=== PATIENT | female | born 1990 | race Caucasian/White ===

== ENCOUNTER 2016-08-05 19:34 | Inpatient (IN) ==
[2016-08-05] MEDS: *HR* HYDROmorphone (PF) 1 MG/ML SYRINGE IVP PRN ×2 (21:39→23:46)
[2016-08-05] MEDS: 0.9 % Sodium Chloride 1,000 ML IVC SCH (21:53)
[2016-08-06] MEDS ORDERED: Ondansetron 4 MG/2 ML VIAL IVP SCH
[2016-08-06] MEDS: *HR* HYDROmorphone (PF) 1 MG/ML SYRINGE IVP PRN ×6 (03:06→23:35)
[2016-08-06] MEDS: Ondansetron 4 MG/2 ML VIAL IVP PRN ×2 (03:08→15:40)
[2016-08-06] MEDS: cefOXitin 2,000 MG in D5% in Water (Mini-Bag+) 100 ML IVPB SCH ×4 (04:49→23:35)
[2016-08-06 05:42] LABS: Basophils % 0.4 %; Eosinophils # 0.1 K/mcL (0.0-0.6); Eosinophils % 0.5 %; Hematocrit 43.5 % (35.3-44.9); Hemoglobin 13.4 g/dL (11.5-15.4); Immature Granulocytes % 0.4 % (0-4); Lymphocytes % 8.7 %; Mean Corpuscular HGB Conc 30.8 g/dL (31.6-35.5); Mean Corpuscular Hemoglobin 23.8 pg (28.0-33.3); Mean Corpuscular Volume 77.4 fL (83.0-100.0); Mean Platelet Volume 10.9 fL (9.4-12.4); Monocytes # 1.1 K/mcL (0.0-1.3); Neutrophils # 9.1 K/mcL (1.6-8.9); Platelet Count 247 K/mcL (140-400); Red Blood Count 5.62 M/mcL (3.82-4.97); Red Cell Distribution Width 14.8 % (11.5-14.5)
[2016-08-06 05:57] LABS: Alanine Aminotransferase 537 Units/L (0-55); Albumin 3.6 g/dL (3.5-5.0); Albumin/Globulin Ratio 0.9 (1.1-2.2); Alkaline Phosphatase 167 Units/L (38-126); Aspartate Amino Transferase 556 Units/L (5-34); BUN/Creatinine Ratio 9 (6-26); Bilirubin,Indirect 1.4 mg/dL (0.0-1.2); Bilirubin,Total 3.4 mg/dL (0.2-1.2); Blood Urea Nitrogen 7 mg/dL (7-20); Calcium 8.8 mg/dL (8.6-10.8); Carbon Dioxide 26 mEq/L (19-29); Chloride 103 mEq/L (98-109); Globulin 3.9 g/dL (2.4-3.5); Glucose 152 mg/dL (70-99); Osmolality,Calculated 289 (280-300); Sodium 139 mEq/L (136-145); Total Protein 7.5 g/dL (6.0-8.3); eGFR For African Americans > 60 (> 60); eGFR For Non-African Americans > 60 (> 60)
--- NOTE | 2016-08-06 08:38 | General Surg History&Physical ---
Date of Encounter: 08/06/16 Time of Encounter: 08:30 Assessment and Plan (1) Acute cholecystitis due to biliary calculus Current Visit: Yes Status: Acute The assessment and plan as outlined above was discussed with the patient and/or family members who expressed understanding and agreement. All questions were answered. The patient has acute cholecystitis with dilated common bile duct raising the possibility of choledocholithiasis. She has received 2 doses of intravenous antibiotics and now presents for urgent laparoscopic cholecystectomy. Cholangiogram will be performed rule out choledocholithiasis. I discussed the risks and benefits of surgery with her including the risk of open conversion and postoperative bile leak. She understands this and wished to proceed. She understands the postoperative ERCP a be recommended if choledocholithiasis is identified. History of Present Illness Chief complaint: Abdominal pain HPI: Ms. Cruz is a 26 year old female Who is been having right upper quadrant abdominal pain for 5 years. She was told that she had cholelithiasis 5 years ago and gallbladder removal was recommended. She has been having intermittent right upper quadrant pain radiating through to the back. She denies shakes chills or fever. She denies episodes of jaundice. She had a particularly severe episode of right upper quadrant pain rated at 8 out of 10 yesterday. She sought evaluation in the emergency room. CAT scan demonstrated a dilated common bile duct and dilated gallbladder. White blood cell count was elevated at 18,000. She was transferred for treatment of acute cholecystitis. Follow-up ultrasound of the right upper quadrant is morning demonstrated cholelithiasis, gallbladder sludge , thickened gallbladder wall, pericholecystic fluid, and dilated common bile duct. She has received 2 doses of intravenous IV antibiotics and now presents for urgent laparoscopic cholecystectomy, cholangiogram. Cholangiogram will be necessary to evaluate for choledocholithiasis secondary to dilated common bile duct Past Med Surg Social Fam HX - Past Medical History Medical history: asthma, other Psychiatric history: anxiety - Social History Smoking Status: Former smoker Smokeless Tobacco Status: No Alcohol use: none Drug use: none Medications and Allergies FLUoxetine HCl [PROzac] 20 mg PO DAILY 08/05/16 [History] Famotidine [Pepcid] 20 mg PO BID 08/05/16 [History] Allergies No Known Allergies Allergy (Verified 01/02/16 21:13) Review of Systems All systems PM: A 10-system review of systems was performed and is negative for pertinent findings except as documented above in the HPI. General Surgery Exam Initial Vital Signs Temp Pulse Resp BP Pulse Ox 97.9 F 85 17 149/85 97 08/05/16 20:30 08/05/16 20:30 08/05/16 20:30 08/05/16 20:30 08/05/16 20:30 - General physical appearance well developed, well nourished, no distress - Respiratory normal expansion, normal respiratory effort, clear to percussion, clear to auscultation - Cardiovascular Cardiovascular exam: Present: RRR, 15, 16 - Abdomen Abdomen general surgery: Present: bowel sounds present, tender Abdominal Tenderness: Present: RUQ - Integumentary Integumentary general surgery: Present: warm and dry, no abnormal pigmentation, other (No evidence of jaundice) - Neurologic Present: CN 2-12 grossly intact, normal coordination, normal sensation - Psychiatric Psychiatric general surgery: Present: appropriate, oriented to person, oriented to place, oriented to time, speech is normal, memory intact Results - Labs 08/06/16 04:53 08/06/16 04:53 Abnormal lab results WBC 11.4 K/mcL (4.3-11.1) H 08/06/16 04:53 RBC 5.62 M/mcL (3.82-4.97) H 08/06/16 04:53 MCV 77.4 fL (83.0-100.0) L 08/06/16 04:53 MCH 23.8 pg (28.0-33.3) L 08/06/16 04:53 MCHC 30.8 g/dL (31.6-35.5) L 08/06/16 04:53 RDW 14.8 % (11.5-14.5) H 08/06/16 04:53 Neutrophils # 9.1 K/mcL (1.6-8.9) H 08/06/16 04:53 Glucose 152 mg/dL (70-99) H 08/06/16 04:53 Total Bilirubin 3.4 mg/dL (0.2-1.2) H D 08/06/16 04:53 Direct Bilirubin 2.0 mg/dL (0.0-0.5) H 08/06/16 04:53 Indirect Bilirubin 1.4 mg/dL (0.0-1.2) H 08/06/16 04:53 AST 556 Units/L (5-34) H 08/06/16 04:53 ALT 537 Units/L (0-55) H 08/06/16 04:53 Alkaline Phosphatase 167 Units/L (38-126) H 08/06/16 04:53 Globulin 3.9 g/dL (2.4-3.5) H 08/06/16 04:53 Albumin/Globulin Ratio 0.9 (1.1-2.2) L 08/06/16 04:53 Diabetes panel 08/06/16 Range/Units 04:53 Sodium 139 (136-145) mEq/L Potassium 4.0 (3.5-4.5) mEq/L Chloride 103 (98-109) mEq/L Carbon Dioxide 26 (19-29) mEq/L BUN 7 (7-20) mg/dL Creatinine 0.81 (0.57-1.11) mg/dL Glucose 152 H (70-99) mg/dL Calcium 8.8 (8.6-10.8) mg/dL AST 556 H (5-34) Units/L ALT 537 H (0-55) Units/L Alkaline Phosphatase 167 H (38-126) Units/L Albumin 3.6 (3.5-5.0) g/dL Calcium panel 08/06/16 Range/Units 04:53 Calcium 8.8 (8.6-10.8) mg/dL Albumin 3.6 (3.5-5.0) g/dL Pituitary panel 08/06/16 Range/Units 04:53 Sodium 139 (136-145) mEq/L Potassium 4.0 (3.5-4.5) mEq/L Chloride 103 (98-109) mEq/L Carbon Dioxide 26 (19-29) mEq/L BUN 7 (7-20) mg/dL Creatinine 0.81 (0.57-1.11) mg/dL Glucose 152 H (70-99) mg/dL Calcium 8.8 (8.6-10.8) mg/dL Adrenal panel 08/06/16 Range/Units 04:53 Sodium 139 (136-145) mEq/L Potassium 4.0 (3.5-4.5) mEq/L Chloride 103 (98-109) mEq/L Carbon Dioxide 26 (19-29) mEq/L BUN 7 (7-20) mg/dL Creatinine 0.81 (0.57-1.11) mg/dL Glucose 152 H (70-99) mg/dL Calcium 8.8 (8.6-10.8) mg/dL Total Bilirubin 3.4 H D (0.2-1.2) mg/dL AST 556 H (5-34) Units/L ALT 537 H (0-55) Units/L Alkaline Phosphatase 167 H (38-126) Units/L Albumin 3.6 (3.5-5.0) g/dL All other labs normal. - Imaging CT scan - abdomen: image reviewed (I personally reviewed the CAT scan of the abdomen and agree with findings of dilated gallbladder and common bile duct) US - abdomen: image reviewed (I personally reviewed the ultrasound of the right upper quadrant. Findings are consistent with cholelithiasis and acute cholecystitis with possible choledocholithiasis)
[2016-08-06] MEDS: 0.9 % Sodium Chloride 1,000 ML IVC SCH ×2 (13:36→23:33)
[2016-08-06] MEDS ORDERED: Ondansetron 4 MG/2 ML VIAL ONE (17:31)
[2016-08-06] MEDS ORDERED: *HR* FentaNYL (PF) 100 MCG/2 ML VIAL ONE (17:31)
[2016-08-06] MEDS ORDERED: *HR* Propofol 200 MG/20 ML VIAL IVP ONE (17:31)
[2016-08-06] MEDS ORDERED: Lidocaine -MPF 2% 2 ML VIAL ONE (17:31)
[2016-08-06] MEDS ORDERED: Dexamethasone 4 MG/ML VIAL ONE (17:31)
[2016-08-06] MEDS ORDERED: *HR* Rocuronium Bromide 50 MG/5 ML VIAL ONE ×2 (17:31→21:07)
--- NOTE | 2016-08-06 18:06 | Anesthesia Evaluation PreOp ---
Date of Encounter: 08/06/16 Time of Encounter: 18:10 - Past History Planned Operation: Lap Cholecystectomy Cardiac History: Denies any Significant Hx Pulmonary History: Former smoker, Asthma CONCERT MANAGER History: Denies Any Significant HX Other Medical History: Other (Morbid Obesity) Anesthesia History: No Prior Anesthetic Complications : No Test: Negative Alcohol Use: none Drug use: none Medications and Allergies FLUoxetine HCl [PROzac] 20 mg PO DAILY 08/05/16 [History] Famotidine [Pepcid] 20 mg PO BID 08/05/16 [History] Allergies No Known Allergies Allergy (Verified 01/02/16 21:13) - Meds/Allergy Pre-op Review Medications Reviewed: Yes Allergies Reviewed: Yes Beta Blockers on Current Med List: No Anesthesia Results - Labs 08/06/16 04:53 08/06/16 04:53 Laboratory Tests 08/05/16 08/06/16 08/06/16 17:47 04:53 04:53 Hgb 13.4 Hct 43.5 Plt Count 247 Sodium 139 Potassium 4.0 BUN 7 Creatinine 0.81 Urine Test Negative Anesthesia Exam O2 Sat Height 1.68 m Weight 118.7 kg Weight 117.934 kg O2 Sat by Pulse Oximetry 97 O2 Sat by Pulse Oximetry 95 O2 Sat by Pulse Oximetry 97 O2 Sat by Pulse Oximetry 95 O2 Sat by Pulse Oximetry 97 O2 Sat by Pulse Oximetry 97 Vital Signs Temp Pulse Resp BP Pulse Ox 97.9 F 85 17 149/85 97 08/05/16 20:30 08/05/16 20:30 08/05/16 20:30 08/05/16 20:30 08/05/16 20:30 Height: 5'6 Weight: 261 lbs NPO (# of Hours): MN Pain Scale: 0 - HEENT Pupil (Motor): Pupils equal, EOMI Mallampati: II Teeth: Normal Oral Opening: Greater than 3 - CONCERT MANAGER LOC: Oriented CONCERT MANAGER Motor: Normal RUE, Normal LUE, Normal RLE, Normal LLE, Normal Face CONCERT MANAGER Sensory: Normal: RUE, LUE, RLE, LLE, Face - Cardiac Rhythm: Regular Murmur: None JVD: No Carotid Bruit: No - Pulmonary Breath Sounds: bilateral Clear Respiratory Effort: Symmetrical Anesthesia Assess/Plan ASA Score: 3 (MO) Modified James Scale for Level of Consciousness: Cooperative, oriented, and tranquil Anesthetic Plan: General Monitoring Plan: Standard Monitors Recovery Plan: PACU (Discussed GA, agrees to proceed)
[2016-08-06] MEDS ORDERED: Acetaminophen IV 1,000 MG/100 ML INFUS..BTL ONE (18:08)
[2016-08-06] MEDS ORDERED: Famotidine 20 MG/2 ML VIAL ONE (18:08)
[2016-08-06] MEDS ORDERED: *HR* Midazolam HCl 2 MG/2 ML VIAL ONE (18:09)
[2016-08-06] MEDS ORDERED: *HR* Succinylcholine 200 MG/10 ML VIAL IVP ONE (18:17)
[2016-08-06] MEDS ORDERED: Lidocaine -MPF 4% 5 ML AMPUL ONE (18:18)
[2016-08-06] MEDS ORDERED: *HR* HYDROmorphone 2 MG/ML SYRINGE ONE (18:33)
[2016-08-06] MEDS ORDERED: *HR* HYDROmorphone (PF) 1 MG/ML SYRINGE IVP PRN (19:05)
[2016-08-06] MEDS ORDERED: *HR* Promethazine 25 MG/ML VIAL IVP PRN (19:05)
[2016-08-06] MEDS ORDERED: Neostigmine Methylsulfate 3 MG/3 ML SYRINGE ONE (21:27)
--- NOTE | 2016-08-06 21:48 | Operative Note ---
Date of procedure: 08/06/16 Pre-op diagnosis: Acute cholecystitis and cholelithiasis Post-op diagnosis: other (#1 acute cholecystitis and cholelithiasis #2 impacted 1.8 cm common bile duct stone) Procedure: #1 attempted laparoscopic cholecystectomy and cholangiogram aborted after 45 minutes. #2, conversion to open cholecystectomy. #3 common bile duct exploration with removal of impacted common bile duct stone Anesthesia: ISAI Surgeon: Steve Jones Estimated blood loss (cc): 75 Specimen: #1 gallbladder and contents #2 1.8 cm common bile duct stone Condition: stable Disposition: PACU Procedure in Detail: After informed consent the patient is taken to the major operative suite placed in supine position given adequate general anesthetic. The abdomen was prepped and draped in sterile fashion utilizing ChloraPrep standard draping techniques. Timeout was taken patient was identified. Made a vertical midline incision below the umbilicus dissected down to level of fascia and placed 2 traction stitches. A Mazariegos trocar was placed into the abdomen and the abdomen was insufflated to 15 mmHg pressure of CO2. I placed an 11 trocar in the subxiphoid area and 25 mm trochars in subcostal area. The gallbladder was photographed. The gallbladder was completely obstructed. The gallbladder was decompressed with a decompression needle. There was white bile consistent with complete obstruction. The gallbladder was grasped and elevated a variety of blunt and sharp dissection techniques were used to isolate the cystic duct. The cystic duct was very large. I obtained a cholangiogram. The cholangiogram demonstrated flow into the proximal common bile ducts and into the liver but absolutely no flow distal to the cystic duct. I attempted a second cholangiogram and had the same findings. The differential diagnosis included obstruction of the distal common bile duct versus misidentification of the common bile duct for cholangiogram and possible common bile duct injury. Decision was made to convert to open. Open conversion was delayed with 2 Bookwalter retractor sets demonstrating inadequate sterilization. We are finally able to start the open conversion. I made a subcostal incision after removing all trochars. I entered the abdominal cavity and placed a Bookwalter retractor. I dissected the neck of the gallbladder. There was no common bile duct injury. The cystic duct was quite large. I divided the cystic artery and the cystic duct and performed cholecystectomy. Once this was done I palpated the common bile duct and the common bile duct had a stone impacted in the common bile duct just distal to the cystic duct junction. I used Hancock scissors to open the cystic duct on the common bile duct proximally and distally with some difficulty I was able to finally remove the 1.8 cm stone which was completely impacted. After removing the stone I had a negative stone forcep passed proximally and distally and I was able to pass the dilator through the common bile duct sphincter at the duodenum. I then placed a 16-Hebrew T-tube and close the common bile duct opening around the T tube with 4 stitches of 4-0 Prolene. I obtained a completion cholangiogram demonstrating no evidence of filling defects, chronically dilated common bile duct, and flow into the duodenum. I irrigated with copious amounts of antibiotic containing solution. I placed a # 10 Froy-Garcia drain beside the T tube. Both of these were secured with silk. Posterior fascia was closed with looped 0 PDS and the anterior fascia was closed with looped 0 PDS the skin was closed with Vicryl and skin bere. The patient tolerated the procedure very well and is transferred to recovery in stable condition
--- NOTE | 2016-08-06 22:29 | Anesthesia Evaluation Post Op ---
Date of Encounter: 08/06/16 Time of Encounter: 22:27 - Vital Signs Vital Signs: Vital Signs/O2 Sat, Most Current Temp Pulse Resp BP Pulse Ox 98.3 F 95 20 129/71 99 08/06/16 22:16 08/06/16 22:16 08/06/16 22:16 08/06/16 22:16 08/06/16 22:16 - Lungs Lungs: Clear Ascult./Percussion - Airway Airway: Non-obstructed - Cardiovascular Regular Rate - Mental Status Mental Status: Alert & Oriented, Answers Appropriately - Pain Pain Scale: 4 Pain Scale used: Numeric (1 - 10) - Nausea Vomiting Nausea Vomiting: Not Present - Hydration Hydration: NPO, Has not voided - Discharge PostOp Status: Transfer Patient to floor
[2016-08-07] MEDS: *HR* HYDROmorphone (PF) 1 MG/ML SYRINGE IVP PRN ×4 (03:59→13:22)
[2016-08-07 06:08] LABS: Basophils % 0.2 %; Hematocrit 40.7 % (35.3-44.9); Hemoglobin 12.8 g/dL (11.5-15.4); Immature Granulocytes % 0.4 % (0-4); Lymphocytes # 0.7 K/mcL (0.6-4.6); Lymphocytes % 4.3 %; Mean Corpuscular HGB Conc 31.4 g/dL (31.6-35.5); Mean Corpuscular Hemoglobin 24.7 pg (28.0-33.3); Mean Corpuscular Volume 78.4 fL (83.0-100.0); Monocytes # 1.4 K/mcL (0.0-1.3); Monocytes % 8.9 %; Neutrophils # 13.7 K/mcL (1.6-8.9); Platelet Count 232 K/mcL (140-400); Red Blood Count 5.19 M/mcL (3.82-4.97); Red Cell Distribution Width 15.1 % (11.5-14.5); Segmented Neutrophils % 86.2 %
[2016-08-07 06:23] LABS: Alanine Aminotransferase 594 Units/L (0-55); Albumin 3.3 g/dL (3.5-5.0); Albumin/Globulin Ratio 0.8 (1.1-2.2); Alkaline Phosphatase 226 Units/L (38-126); Aspartate Amino Transferase 278 Units/L (5-34); BUN/Creatinine Ratio 7 (6-26); Bilirubin,Indirect 2.5 mg/dL (0.0-1.2); Blood Urea Nitrogen 6 mg/dL (7-20); Calcium 8.7 mg/dL (8.6-10.8); Carbon Dioxide 25 mEq/L (19-29); Chloride 103 mEq/L (98-109); Glucose 147 mg/dL (70-99); Osmolality,Calculated 286 (280-300); Potassium 4.3 mEq/L (3.5-4.5); Sodium 138 mEq/L (136-145); Total Protein 7.3 g/dL (6.0-8.3); eGFR For African Americans > 60 (> 60); eGFR For Non-African Americans > 60 (> 60)
[2016-08-07 06:24] LABS: Bilirubin,Direct 4.1 mg/dL (0.0-0.5); Bilirubin,Total 6.6 mg/dL (0.2-1.2)
[2016-08-07] MEDS: cefOXitin 2,000 MG in D5% in Water (Mini-Bag+) 100 ML IVPB SCH ×2 (07:52→14:33)
--- NOTE | 2016-08-07 11:44 | General Surgery Progress Note ---
Date of Encounter: 08/07/16 Time of Encounter: 11:41 - Assessment and Plan (1) Acute cholecystitis due to biliary calculus Current Visit: Yes Status: Acute POD1 open cholecystectomy w/ common bile duct exploration with removal of impacted common bile duct stone Patient tolerated the procedure well. Bile drain and MARILEE drain in place Having expected post-op pain Abx: Cefoxitin 2g q8h pain: dilaudid 1mg q1h prn IVF NS @75ml/hr Zofran: 4mg IV q6h prn clear liquid diet (2) DVT prophylaxis Current Visit: Yes Status: Acute antiembolic stockings Subjective Patient reports: feels better, still having pain Narrative: Patient seen and examined. POD1 s/p open cholecystectomy and common bile duct exploration with removal of impacted common bile duct stone. Patient tolerated the procedure well. No events noted overnight. Pain is controlled. Denies nausea/vomiting. Objective Vital Signs - Last 8 Hours Temp Pulse Resp BP Pulse Ox 08/07/16 08:23 97.5 F L 92 16 132/77 97 08/07/16 08:00 97 08/07/16 03:51 98.4 F 74 16 126/76 98 Intake and Output 08/06/16 08/07/16 08/07/16 23:59 07:59 15:59 Intake Total 100 / 100 1000 / 1000 Output Total 90 / 90 210 / 210 100 / 100 Balance -90 / -90 -110 / -110 900 / 900 Intake: IV Fluids 100 / 100 Mefoxin 2,000 MG In 100 / 100 Dextrose 5% (Minibag+) 100 ML 100 ML @ 200 mls/ hr IVPB Q8HR [facility] Rx#: [id number] Oral 1000 / 1000 Output: Urine 200 / 200 100 / 100 Estimated Blood Loss 50 / 50 Wound Drainage 40 / 40 10 / 10 Right Lower Abdomen 40 / 40 10 / 10 Other: Meal NPO Weight 118.86 kg Patient Weight 08/07/16 23:59 Weight 118.86 kg - Additional Exam - General physical appearance well developed, well nourished, no distress - Respiratory normal expansion, normal respiratory effort, clear to percussion, clear to auscultation - Cardiovascular Cardiovascular exam: Present: RRR, 15, 16 - Abdomen Abdomen general surgery: Present: bowel sounds present, expected post-op tenderness, MARILEE drain in abdomen Abdominal Tenderness: Present: RUQ - Integumentary Integumentary general surgery: Present: warm and dry, no abnormal pigmentation, other (No evidence of jaundice) - Neurologic Present: CN 2-12 grossly intact, normal coordination, normal sensation - Psychiatric Psychiatric general surgery: Present: appropriate, oriented to person, oriented to place, oriented to time, speech is normal, memory intact - Labs 08/07/16 05:35 08/07/16 05:35 Diabetes panel 08/07/16 Range/Units 05:35 Sodium 138 (136-145) mEq/L Potassium 4.3 (3.5-4.5) mEq/L Chloride 103 (98-109) mEq/L Carbon Dioxide 25 (19-29) mEq/L BUN 6 L (7-20) mg/dL Creatinine 0.81 (0.57-1.11) mg/dL Glucose 147 H (70-99) mg/dL Calcium 8.7 (8.6-10.8) mg/dL AST 278 H (5-34) Units/L ALT 594 H (0-55) Units/L Alkaline Phosphatase 226 H (38-126) Units/L Albumin 3.3 L (3.5-5.0) g/dL Calcium panel 08/07/16 Range/Units 05:35 Calcium 8.7 (8.6-10.8) mg/dL Albumin 3.3 L (3.5-5.0) g/dL Pituitary panel 08/07/16 Range/Units 05:35 Sodium 138 (136-145) mEq/L Potassium 4.3 (3.5-4.5) mEq/L Chloride 103 (98-109) mEq/L Carbon Dioxide 25 (19-29) mEq/L BUN 6 L (7-20) mg/dL Creatinine 0.81 (0.57-1.11) mg/dL Glucose 147 H (70-99) mg/dL Calcium 8.7 (8.6-10.8) mg/dL Adrenal panel 08/07/16 Range/Units 05:35 Sodium 138 (136-145) mEq/L Potassium 4.3 (3.5-4.5) mEq/L Chloride 103 (98-109) mEq/L Carbon Dioxide 25 (19-29) mEq/L BUN 6 L (7-20) mg/dL Creatinine 0.81 (0.57-1.11) mg/dL Glucose 147 H (70-99) mg/dL Calcium 8.7 (8.6-10.8) mg/dL Total Bilirubin 6.6 H D (0.2-1.2) mg/dL AST 278 H (5-34) Units/L ALT 594 H (0-55) Units/L Alkaline Phosphatase 226 H (38-126) Units/L Albumin 3.3 L (3.5-5.0) g/dL - VTE Documentation of Mechanical Device: Intermittent pneumatic compression device Consult Discharge Plan - Plan Referrals: Rosi Sosa, IMPROVEMENT ADVISOR [Primary Care Provider] - - Attending Attestation I examined this patient and my medical decision-making was reviewed with the PROPERTY MAINTENANCE SUPERVISOR/PA/Advanced Practice Nurse/Resident Physician. I agree with the documented findings, disposition and treatment plan as described except to the extent set forth below. The patient is seen and evaluated on morning rounds with the resident area the patient has excellent pain control. The T-tube is draining green bile. The MARILEE drain is draining pink serosanguineous fluid with no bile staining. This is an excellent technical result. She had a 1.8 cm completely impacted distal common bile duct stone that was removed during common bile duct exploration. Continue supportive care today. Ambulation. Steve Jones MD FACS
[2016-08-07] MEDS: 0.9 % Sodium Chloride 1,000 ML IVC SCH (13:42)
[2016-08-07] MEDS: *HR* Morphine 2 MG/ML SYRINGE IVP PRN ×3 (14:33→21:23)
[2016-08-07] MEDS: Ondansetron 4 MG/2 ML VIAL IVP PRN (21:31)
[2016-08-08] MEDS: *HR* Morphine 2 MG/ML SYRINGE IVP PRN ×4 (01:39→21:27)
[2016-08-08] MEDS: cefOXitin 2,000 MG in D5% in Water (Mini-Bag+) 100 ML IVPB SCH ×4 (01:39→23:22)
[2016-08-08] MEDS: 0.9 % Sodium Chloride 1,000 ML IVC SCH ×2 (03:09→15:46)
[2016-08-08 06:09] LABS: Basophils % 0.2 %; Eosinophils # 0.2 K/mcL (0.0-0.6); Eosinophils % 1.3 %; Hematocrit 35.9 % (35.3-44.9); Hemoglobin 11.5 g/dL (11.5-15.4); Immature Granulocytes % 0.6 % (0-4); Lymphocytes # 1.5 K/mcL (0.6-4.6); Lymphocytes % 8.8 %; Mean Corpuscular Hemoglobin 24.7 pg (28.0-33.3); Mean Corpuscular Volume 77.2 fL (83.0-100.0); Mean Platelet Volume 10.7 fL (9.4-12.4); Monocytes # 1.6 K/mcL (0.0-1.3); Monocytes % 9.5 %; Neutrophils # 13.6 K/mcL (1.6-8.9); Platelet Count 172 K/mcL (140-400); Red Blood Count 4.65 M/mcL (3.82-4.97); Red Cell Distribution Width 15.3 % (11.5-14.5); Segmented Neutrophils % 79.6 %
[2016-08-08 06:30] LABS: Alanine Aminotransferase 346 Units/L (0-55); Albumin 2.8 g/dL (3.5-5.0); Albumin/Globulin Ratio 0.8 (1.1-2.2); Alkaline Phosphatase 194 Units/L (38-126); Aspartate Amino Transferase 74 Units/L (5-34); BUN/Creatinine Ratio 7 (6-26); Calcium 8.6 mg/dL (8.6-10.8); Carbon Dioxide 23 mEq/L (19-29); Chloride 104 mEq/L (98-109); Globulin 3.7 g/dL (2.4-3.5); Glucose 133 mg/dL (70-99); Osmolality,Calculated 283 (280-300); Sodium 137 mEq/L (136-145); Total Protein 6.5 g/dL (6.0-8.3); eGFR For African Americans > 60 (> 60); eGFR For Non-African Americans > 60 (> 60)
[2016-08-08 06:31] LABS: Bilirubin,Total 3.7 mg/dL (0.2-1.2); Blood Urea Nitrogen 5 mg/dL (7-20)
[2016-08-08] MEDS: Ondansetron 4 MG/2 ML VIAL IVP PRN ×3 (08:21→21:29)
--- NOTE | 2016-08-08 08:44 | General Surgery Progress Note ---
Date of Encounter: 08/08/16 Time of Encounter: 08:41 - Assessment and Plan (1) Acute cholecystitis due to biliary calculus Current Visit: Yes Status: Acute POD2 open cholecystectomy w/ common bile duct exploration with removal of impacted common bile duct stone Patient tolerated the procedure well. Improving. Ambulate in [place]. Advance diet to full liquids. Bile drain and MARILEE drain in place Having expected post-op pain Abx: Cefoxitin 2g q8h (Day 2) pain: dilaudid 1mg q1h prn w/ 4mg morphine q4h prn breakthrough pain IVF NS @75ml/hr Zofran: 4mg IV q6h prn clear liquid diet (2) DVT prophylaxis Current Visit: Yes Status: Acute antiembolic stockings Subjective Patient reports: feels better, still having pain, no bowel movement Narrative: patient seen and examined. Having expected post-op pain. Both drains are functioning appropriately. Objective Vital Signs - Last 8 Hours Temp Pulse Resp BP Pulse Ox 08/08/16 07:47 99.1 F 95 12 127/64 95 08/08/16 05:13 98.6 F 95 14 137/80 96 08/08/16 01:10 98.2 F 108 14 135/83 96 Intake and Output 08/07/16 08/08/16 08/08/16 23:59 07:59 15:59 Intake Total 240 / 240 1100 / 1100 600 / 600 Output Total 500 / 500 120 / 120 160 / 160 Balance -260 / -260 980 / 980 440 / 440 Intake: IV Fluids 1100 / 1100 0.9 % Sodium Chloride 1, 1000 / 1000 000 ML @ 75 mls/hr IVC . [id number] [facility] Rx#: [id number] Mefoxin 2,000 MG In 100 / 100 Dextrose 5% (Minibag+) 100 ML 100 ML @ 200 mls/ hr IVPB Q8HR [facility] Rx#: [id number] Oral 240 / 240 0 / 0 600 / 600 Output: Urine 400 / 400 0 / 0 Wound Drainage 100 / 100 120 / 120 160 / 160 Right Abdomen 100 / 100 100 / 100 10 / 10 Right Lower Abdomen 20 / 20 150 / 150 Other: Meal Dinner # Voids 1 Weight 119.795 kg Patient Weight 08/08/16 23:59 Weight 119.795 kg - Additional Exam - General physical appearance well developed, well nourished, no distress - Respiratory normal expansion, normal respiratory effort, clear to percussion, clear to auscultation - Cardiovascular Cardiovascular exam: Present: RRR, 15, 16 - Abdomen Abdomen general surgery: Present: bowel sounds present, expected post-op tenderness, MARILEE drain in abdomen Abdominal Tenderness: Present: RUQ - Integumentary Integumentary general surgery: Present: warm and dry, no abnormal pigmentation, other (No evidence of jaundice) - Neurologic Present: CN 2-12 grossly intact, normal coordination, normal sensation - Psychiatric Psychiatric general surgery: Present: appropriate, oriented to person, oriented to place, oriented to time, speech is normal, memory intact - Labs 08/08/16 05:50 08/08/16 05:50 Diabetes panel 08/08/16 Range/Units 05:50 Sodium 137 (136-145) mEq/L Potassium 4.0 (3.5-4.5) mEq/L Chloride 104 (98-109) mEq/L Carbon Dioxide 23 (19-29) mEq/L BUN 5 L (7-20) mg/dL Creatinine 0.72 (0.57-1.11) mg/dL Glucose 133 H (70-99) mg/dL Calcium 8.6 (8.6-10.8) mg/dL AST 74 H (5-34) Units/L ALT 346 H (0-55) Units/L Alkaline Phosphatase 194 H (38-126) Units/L Albumin 2.8 L (3.5-5.0) g/dL Calcium panel 08/08/16 Range/Units 05:50 Calcium 8.6 (8.6-10.8) mg/dL Albumin 2.8 L (3.5-5.0) g/dL Pituitary panel 08/08/16 Range/Units 05:50 Sodium 137 (136-145) mEq/L Potassium 4.0 (3.5-4.5) mEq/L Chloride 104 (98-109) mEq/L Carbon Dioxide 23 (19-29) mEq/L BUN 5 L (7-20) mg/dL Creatinine 0.72 (0.57-1.11) mg/dL Glucose 133 H (70-99) mg/dL Calcium 8.6 (8.6-10.8) mg/dL Adrenal panel 08/08/16 Range/Units 05:50 Sodium 137 (136-145) mEq/L Potassium 4.0 (3.5-4.5) mEq/L Chloride 104 (98-109) mEq/L Carbon Dioxide 23 (19-29) mEq/L BUN 5 L (7-20) mg/dL Creatinine 0.72 (0.57-1.11) mg/dL Glucose 133 H (70-99) mg/dL Calcium 8.6 (8.6-10.8) mg/dL Total Bilirubin 3.7 H (0.2-1.2) mg/dL AST 74 H (5-34) Units/L ALT 346 H (0-55) Units/L Alkaline Phosphatase 194 H (38-126) Units/L Albumin 2.8 L (3.5-5.0) g/dL - VTE Documentation of Mechanical Device: Intermittent pneumatic compression device Consult Discharge Plan - Plan Referrals: Rosi Sosa, SEARCH MARKETING ANALYST [Primary Care Provider] - - Attending Attestation I examined this patient and my medical decision-making was reviewed with the ENGLISH AS A SECOND LANGUAGE INSTRUCTOR/PA/Advanced Practice Nurse/Resident Physician. I agree with the documented findings, disposition and treatment plan as described except to the extent set forth below. The patient was seen and evaluated on morning rounds with the resident. Pain control is much improved. The T-tube is draining bile. The Froy-Garcia has serosanguineous fluid with no evidence of bile. We will continue drainage today until her bilirubin normalizes. At that point we will clamp the T-tube and make sure there is no drainage into the Froy-Garcia. This will need to be done before she goes home. Steve Jones MD FACS
[2016-08-08] MEDS: *HR* HYDROmorphone (PF) 1 MG/ML SYRINGE IVP PRN ×4 (10:04→23:25)
[2016-08-09] MEDS: *HR* Morphine 2 MG/ML SYRINGE IVP PRN ×2 (06:04→10:56)
--- NOTE | 2016-08-09 07:12 | General Surgery Progress Note ---
Date of Encounter: 08/09/16 Time of Encounter: 06:50 - Assessment and Plan (1) Acute cholecystitis due to biliary calculus Current Visit: Yes Status: Acute POD2 open cholecystectomy w/ common bile duct exploration with removal of impacted common bile duct stone Patient tolerated the procedure well. Improving. Ambulate in [place]. Advance diet to full liquids. Bile drain and MARILEE drain in place Having expected post-op pain Abx: Cefoxitin 2g q8h (Day 2) pain: dilaudid 1mg q1h prn w/ 4mg morphine q4h prn breakthrough pain IVF NS @75ml/hr Zofran: 4mg IV q6h prn clear liquid diet 08/09/2016 0711 The patient has made significant improvement in her abdominal pain. We will will check her liver function tests later today. If her liver function tests are trending toward normal we will clamp her G-tube to make sure that bile was going through to the duodenum area if there is no cross contamination with Froy-Garcia drain we will plan on removing the Froy-Garcia drain tomorrow morning and discharge from the hospital at that point. (2) DVT prophylaxis Current Visit: Yes Status: Acute antiembolic stockings Subjective Narrative: The patient has had interval improvement in her abdominal pain. Her T-tube is draining clear bile. Froy-Garcia is draining serosanguineous pink fluid with no bile contamination. She denies shakes chills or fever and is able to ambulate. She is tolerating full liquid diet. Objective Intake and Output 08/08/16 08/08/16 08/09/16 15:59 23:59 07:59 Intake Total 2560 / 2560 340 / 340 100 / 100 Output Total 725 / 725 270 / 270 350 / 350 Balance 1835 / 1835 70 / 70 -250 / -250 Intake: IV Fluids 1100 / 1100 100 / 100 100 / 100 0.9 % Sodium Chloride 1, 1000 / 1000 000 ML @ 75 mls/hr IVC . [id number] [facility] Rx#: [id number] Mefoxin 2,000 MG In 100 / 100 100 / 100 100 / 100 Dextrose 5% (Minibag+) 100 ML 100 ML @ 200 mls/ hr IVPB Q8HR [facility] Rx#: [id number] Oral 1460 / 1460 240 / 240 0 / 0 Output: Urine 300 / 300 0 / 0 0 / 0 Wound Drainage 425 / 425 270 / 270 350 / 350 Right Abdomen 50 / 50 70 / 70 350 / 350 Right Lower Abdomen 375 / 375 200 / 200 Other: Meal Lunch Dinner Percent of Meal Consumed 100% 75% Weight 119.9 kg Patient Weight 08/09/16 23:59 Weight 119.9 kg - General physical appearance well developed, well nourished, obese - Respiratory normal expansion, normal respiratory effort, clear to percussion, clear to auscultation - Cardiovascular Cardiovascular exam: Present: RRR, no murmurs/rubs/gallops - Incision Incision: Present: clean and dry - Psychiatric oriented to time, oriented to person, oriented to place, speech is normal, memory intact - Labs 08/08/16 05:50 08/08/16 05:50 - VTE Documentation of Mechanical Device: Graduated compression elastic hosiery Consult Discharge Plan - Plan Referrals: Rosi Sosa, [employer] [Primary Care Provider] -
[2016-08-09 07:16] LABS: Albumin 2.7 g/dL (3.5-5.0); Albumin/Globulin Ratio 0.7 (1.1-2.2); Bilirubin,Direct 1.2 mg/dL (0.0-0.5); Bilirubin,Total 2.2 mg/dL (0.2-1.2); Total Protein 6.7 g/dL (6.0-8.3)
[2016-08-09] MEDS: 0.9 % Sodium Chloride 1,000 ML IVC SCH ×2 (07:17→23:10)
[2016-08-09 07:29] LABS: Basophils % 0.3 %; Eosinophils # 0.4 K/mcL (0.0-0.6); Hematocrit 34.4 % (35.3-44.9); Hemoglobin 10.7 g/dL (11.5-15.4); Immature Granulocytes % 0.7 % (0-4); Lymphocytes # 1.5 K/mcL (0.6-4.6); Mean Corpuscular HGB Conc 31.1 g/dL (31.6-35.5); Mean Corpuscular Hemoglobin 24.7 pg (28.0-33.3); Mean Corpuscular Volume 79.3 fL (83.0-100.0); Mean Platelet Volume 11.1 fL (9.4-12.4); Monocytes # 1.3 K/mcL (0.0-1.3); Monocytes % 10.3 %; Platelet Count 182 K/mcL (140-400); Red Blood Count 4.34 M/mcL (3.82-4.97); Red Cell Distribution Width 15.4 % (11.5-14.5); Segmented Neutrophils % 73.7 %
[2016-08-09] MEDS: cefOXitin 2,000 MG in D5% in Water (Mini-Bag+) 100 ML IVPB SCH ×3 (07:42→23:20)
[2016-08-09] MEDS: *HR* HYDROmorphone (PF) 1 MG/ML SYRINGE IVP PRN ×5 (07:47→23:19)
[2016-08-10] MEDS: *HR* HYDROmorphone (PF) 1 MG/ML SYRINGE IVP PRN ×2 (03:04→07:47)
[2016-08-10 06:51] LABS: Basophils # 0.1 K/mcL (0.0-0.2); Basophils % 0.5 %; Eosinophils # 0.3 K/mcL (0.0-0.6); Eosinophils % 3.4 %; Hematocrit 33.5 % (35.3-44.9); Hemoglobin 10.4 g/dL (11.5-15.4); Immature Granulocytes % 0.5 % (0-4); Lymphocytes # 1.6 K/mcL (0.6-4.6); Lymphocytes % 16.5 %; Mean Corpuscular Hemoglobin 24.9 pg (28.0-33.3); Mean Corpuscular Volume 80.3 fL (83.0-100.0); Mean Platelet Volume 10.6 fL (9.4-12.4); Monocytes % 10.5 %; Neutrophils # 6.6 K/mcL (1.6-8.9); Platelet Count 189 K/mcL (140-400); Red Blood Count 4.17 M/mcL (3.82-4.97); Red Cell Distribution Width 15.3 % (11.5-14.5); Segmented Neutrophils % 68.6 %
[2016-08-10 07:11] LABS: Albumin 2.6 g/dL (3.5-5.0); Albumin/Globulin Ratio 0.7 (1.1-2.2); Bilirubin,Direct 0.7 mg/dL (0.0-0.5); Bilirubin,Indirect 0.8 mg/dL (0.0-1.2); Bilirubin,Total 1.5 mg/dL (0.2-1.2); Globulin 3.9 g/dL (2.4-3.5); Total Protein 6.5 g/dL (6.0-8.3)
[2016-08-10 07:29] VITALS: BP 113/73
[2016-08-10] MEDS: cefOXitin 2,000 MG in D5% in Water (Mini-Bag+) 100 ML IVPB SCH (07:33)
--- NOTE | 2016-08-10 08:04 | Discharge Summary ---
<Julian Bhakta - Last Filed: 08/10/16 09:24> Date of Encounter: 08/10/16 Time of Encounter: 08:03 - Discharge Diagnosis (1) Acute cholecystitis due to biliary calculus Priority: Primary Status: Resolved (2) DVT prophylaxis Priority: Secondary Status: Acute - Discharge Medications Prescriptions: Oxycodone HCl/Acetaminophen [Percocet 10-325 mg Tablet] 1 each PO Q6H PRN #24 tablet PRN Reason: Pain Home Medications: FLUoxetine HCl [Prozac] 20 mg PO DAILY 08/05/16 [History] Famotidine [Pepcid] 20 mg PO BID 08/05/16 [History] Oxycodone HCl/Acetaminophen [Percocet 10-325 mg Tablet] 1 each PO Q6H PRN #24 tablet 08/10/16 [Rx] Allergies/Adverse Reactions: Allergies No Known Allergies Allergy (Verified 01/02/16 21:13) General Surgery Exam Initial Vital Signs Temp Pulse Resp BP Pulse Ox 97.9 F 85 17 149/85 97 08/05/16 20:30 08/05/16 20:30 08/05/16 20:30 08/05/16 20:30 08/05/16 20:30 - General physical appearance well developed, well nourished, no distress - Neck trachea midline - Respiratory normal expansion, clear to auscultation - Cardiovascular Cardiovascular exam: Present: RRR, no murmurs/rubs/gallops - Abdomen Abdomen general surgery: Present: bowel sounds present, soft, tender (expected post-op tenderness) - Neurologic Present: CN 2-12 grossly intact - Psychiatric Psychiatric general surgery: Present: A&Ox3 Date of admission: 08/06/16 13:43 Primary care physician: Rosi Sosa CNP Discharging clinician: Steve Jones Anticipated date of discharge: 08/10/16 - Patient Status Disposition: Home, Self-Care Condition: Good Overall status at discharge: patient is progressing back to baseline - Discharge Instructions Instructions: Open Cholecystectomy (DC) Follow Up With: Rosi Sosa CNP [Primary Care Provider] - Steve Jones MD [Partnered Physician] - 08/23/16 11:50 am Forms: Work/School Release Additional Instructions: Follow up with Dr. Jones outpatient in 1-2 weeks. You are being sent home with a bile bag. If you begin to have shakes or chills or fevers, attach bile bag. Do not lift anything over 20 pounds. You may shower, but no tub bath until you are instructed by Dr. Jones. You may wash around drains with soap and water and pat dry daily. No driving until off narcotics and safely react in the car. - Diet and Activity Activity: increase activity as tolerated Diet: advance to your usual diet - Hospital Course Hospital course: Ms. Cruz is a 26 year old female who is having right upper quadrant abdominal pain for 5 years. She was told that she had cholelithiasis 5 years ago and gallbladder removal was recommended. She has been having intermittent right upper quadrant pain radiating through to the back. She denies shakes chills or fever. She denies episodes of jaundice. She had a particularly severe episode of right upper quadrant pain rated at 8 out of 10 yesterday. She sought evaluation in the emergency room. CAT scan demonstrated a dilated common bile duct and dilated gallbladder. White blood cell count was elevated at 18,000. She was transferred for treatment of acute cholecystitis. Follow-up ultrasound of the right upper quadrant is morning demonstrated cholelithiasis, gallbladder sludge, thickened gallbladder wall, pericholecystic fluid, and dilated common bile duct. She has received 2 doses of intravenous IV antibiotics and now presents for urgent laparoscopic cholecystectomy, cholangiogram. Cholangiogram will be necessary to evaluate for choledocholithiasis secondary to dilated common bile duct Final Diagnosis: Acute cholecystitis due to biliary calculus : Resolved #1 attempted laparoscopic cholecystectomy and cholangiogram aborted after 45 minutes. #2, conversion to open cholecystectomy. #3 common bile duct exploration with removal of impacted common bile duct stone After informed consent the patient is taken to the major operative suite placed in supine position given adequate general anesthetic. The abdomen was prepped and draped in sterile fashion utilizing ChloraPrep standard draping techniques. Timeout was taken patient was identified. Made a vertical midline incision below the umbilicus dissected down to level of fascia and placed 2 traction stitches. A Mazariegos trocar was placed into the abdomen and the abdomen was insufflated to 15 mmHg pressure of CO2. I placed an 11 trocar in the subxiphoid area and 25 mm trochars in subcostal area. The gallbladder was photographed. The gallbladder was completely obstructed. The gallbladder was decompressed with a decompression needle. There was white bile consistent with complete obstruction. The gallbladder was grasped and elevated a variety of blunt and sharp dissection techniques were used to isolate the cystic duct. The cystic duct was very large. I obtained a cholangiogram. The cholangiogram demonstrated flow into the proximal common bile ducts and into the liver but absolutely no flow distal to the cystic duct. I attempted a second cholangiogram and had the same findings. The differential diagnosis included obstruction of the distal common bile duct versus misidentification of the common bile duct for cholangiogram and possible common bile duct injury. Decision was made to convert to open. Open conversion was delayed with 2 Bookwalter retractor sets demonstrating inadequate sterilization. We are finally able to start the open conversion. I made a subcostal incision after removing all trochars. I entered the abdominal cavity and placed a Bookwalter retractor. I dissected the neck of the gallbladder. There was no common bile duct injury. The cystic duct was quite large. I divided the cystic artery and the cystic duct and performed cholecystectomy. Once this was done I palpated the common bile duct and the common bile duct had a stone impacted in the common bile duct just distal to the cystic duct junction. I used Hancock scissors to open the cystic duct on the common bile duct proximally and distally with some difficulty I was able to finally remove the 1.8 cm stone which was completely impacted. After removing the stone I had a negative stone forcep passed proximally and distally and I was able to pass the dilator through the common bile duct sphincter at the duodenum. I then placed a 16-Yi T-tube and close the common bile duct opening around the T tube with 4 stitches of 4-0 Prolene. I obtained a completion cholangiogram demonstrating no evidence of filling defects, chronically dilated common bile duct, and flow into the duodenum. I irrigated with copious amounts of antibiotic containing solution. I placed a # 10 Froy-Garcia drain beside the T tube. Both of these were secured with silk. Posterior fascia was closed with looped 0 PDS and the anterior fascia was closed with looped 0 PDS the skin was closed with Vicryl and skin bere. The patient tolerated the procedure very well and is transferred to recovery in stable condition. Post operatively her leukocytosis resolved. She remained afebrile throughout her stay. She was mildly tachycardic post-op, but this resolved prior to discharge. She had a bile drain and a MARILEE drain in place. The bile drain (G-tube) was clamped on POD#3 and was tolerated well. There was no bilious drainage into the MARILEE drain. Her liver enzymes were returning to baseline at the time of discharge. On the day of discharge her vital signs were within normal limits, her MARILEE drain was removed, and all her questions were addressed. - Time Spent with Patient Total time spent providing and/or coordinating discharge services: Greater than 30 minutes Labs on day of discharge: Labs from last 24 hours 08/10/16 08/10/16 06:29 06:29 WBC 9.7 RBC 4.17 Hgb 10.4 L Hct 33.5 L MCV 80.3 L MCH 24.9 L MCHC 31.0 L RDW 15.3 H Plt Count 189 MPV 10.6 Immature Gran % 0.5 Seg Neutrophils % 68.6 Lymphocytes % 16.5 Monocytes % 10.5 Eosinophils % 3.4 Basophils % 0.5 Neutrophils # 6.6 Lymphocytes # 1.6 Monocytes # 1.0 Eosinophils # 0.3 Basophils # 0.1 Total Bilirubin 1.5 H Direct Bilirubin 0.7 H Indirect Bilirubin 0.8 AST 33 ALT 163 H Alkaline Phosphatase 156 H Serum Total Protein 6.5 Albumin 2.6 L Globulin 3.9 H Albumin/Globulin Ratio 0.7 L - Impressions ITS Impressions Abdomen Ultrasound 08/05/16 21:04 IMPRESSION: 1. Intra and extrahepatic biliary ductal dilatation with possible obstructing calculus in the distal common bile duct. 2. Distended gallbladder containing calculi and layering sludge with diffuse gallbladder wall thickening raising the possibility of acute cholecystitis, however sonographic Tejeda sign was reportedly negative. D/ / Inocencio Emery MD / Inocencio Emery MD Interpreting Provider: Inocencio Emery MD Cholangiogram,Operative 08/06/16 00:00 IMPRESSION: Intraoperative cholangiogram without complication as detailed above. D/ / Loco Sow MD / Loco Sow MD Interpreting Provider: Loco Sow MD <Steve Jones - Last Filed: 08/10/16 14:52> Date of Encounter: 08/10/16 - Discharge Diagnosis (1) Acute cholecystitis due to biliary calculus Status: Resolved (2) DVT prophylaxis Status: Acute General Surgery Exam Initial Vital Signs Temp Pulse Resp BP Pulse Ox 97.9 F 85 17 149/85 97 08/05/16 20:30 08/05/16 20:30 08/05/16 20:30 08/05/16 20:30 08/05/16 20:30 Date of admission: 08/06/16 13:43 Primary care physician: Rosi Sosa CNP - Hospital Course Hospital course: Ms. Cruz is a 26 year old female - Time Spent with Patient Total time spent providing and/or coordinating discharge services: Labs on day of discharge: Labs from last 24 hours 08/10/16 08/10/16 06:29 06:29 WBC 9.7 RBC 4.17 Hgb 10.4 L Hct 33.5 L MCV 80.3 L MCH 24.9 L MCHC 31.0 L RDW 15.3 H Plt Count 189 MPV 10.6 Immature Gran % 0.5 Seg Neutrophils % 68.6 Lymphocytes % 16.5 Monocytes % 10.5 Eosinophils % 3.4 Basophils % 0.5 Neutrophils # 6.6 Lymphocytes # 1.6 Monocytes # 1.0 Eosinophils # 0.3 Basophils # 0.1 Total Bilirubin 1.5 H Direct Bilirubin 0.7 H Indirect Bilirubin 0.8 AST 33 ALT 163 H Alkaline Phosphatase 156 H Serum Total Protein 6.5 Albumin 2.6 L Globulin 3.9 H Albumin/Globulin Ratio 0.7 L - Impressions ITS Impressions Abdomen Ultrasound 08/05/16 21:04 IMPRESSION: 1. Intra and extrahepatic biliary ductal dilatation with possible obstructing calculus in the distal common bile duct. 2. Distended gallbladder containing calculi and layering sludge with diffuse gallbladder wall thickening raising the possibility of acute cholecystitis, however sonographic Tejeda sign was reportedly negative. D/ / Inocencio Emery MD / Inocencio Emery MD Interpreting Provider: Inocencio Emery MD Cholangiogram,Operative 03/18/17 00:00 IMPRESSION: Intraoperative cholangiogram without complication as detailed above. D/ / Loco Sow MD / Loco Sow MD Interpreting Provider: Loco Sow MD - Attending Attestation The patient is seen and evaluated on morning rounds with the resident. She has no bile staining of the Froy-Garcia after clamping the T-tube. A very pleased with her overall clinical course. She may be discharged from the hospital. I examined this patient and my medical decision-making was reviewed with the NETWORK SUPPORT SPECIALIST/PA/Advanced Practice Nurse/Resident Physician. I agree with the documented findings, disposition and treatment plan as described except to the extent set forth below. Steve Jones MD FACS
== END 2016-08-10 11:05 | disposition home or self-care (01) | DRG 262 ==
LOC: 3ANU
PROVIDERS: ADMIT Surgery; ATTEND Surgery